=== PATIENT | male | born 1935 | race Caucasian/White ===

== ENCOUNTER 2017-03-05 12:39 | Inpatient (IN) | payer SELFPAY ==
[~2017-03-05] VITALS: Ht 170.2 cm; Wt 73.5 kg
[2017-03-05] MEDS ORDERED: SODIUM CHLORIDE 0.9% 1000ML BAG (SEPSIS BOLUS) IV ONE (14:30)
[2017-03-05 15:07] LABS: CHLORIDE 105 mEq/L (98-107)
[2017-03-05 15:11] LABS: INR 1.2; PROTHROMBIN TIME 12.8 sec (9.4-11.6)
[2017-03-05 15:15] LABS: CARBON DIOXIDE 22 mEq/L (21-32); ETHANOL BLOOD < 10 mg/dL
[2017-03-05 15:16] LABS: TROPONIN I 0.05 ng/mL (0.00-0.04)
[2017-03-05 16:10] LABS: CLARITY URINE CLOUDY (CLEAR); COLOR URINE YELLOW (YELLOW); GLUCOSE URINE NEGATIVE (NEGATIVE); KETONES URINE NEGATIVE (NEGATIVE); LEUKOCYTE ESTERASE URINE 1+ (NEGATIVE); NITRITE URINE NEGATIVE (NEGATIVE); OCCULT BLOOD URINE 2+ (NEGATIVE); PROTEIN URINE 2+ (NEGATIVE); SPECIFIC GRAVITY URINE 1.018 (1.005-1.030)
[2017-03-05 16:25] LABS: *AMPHETAMINES SCREEN URINE NEGATIVE (NEGATIVE); *BARBITURATES SCREEN URINE NEGATIVE (NEGATIVE); *BENZODIAZEPINES SCREEN URINE NEGATIVE (NEGATIVE); *COCAINE SCREEN URINE NEGATIVE (NEGATIVE); CANNABINOID URINE SCREEN NEGATIVE (NEGATIVE); METHADONE URINE SCREEN NEGATIVE (NEGATIVE); OPIATES URINE SCREEN NEGATIVE (NEGATIVE); PHENCYCLIDINE URINE SCREEN NEGATIVE (NEGATIVE)
[2017-03-05 16:51] LABS: HEMATOCRIT. 23.8 % (42.0-52.0); HEMOGLOBIN. 8.3 g/dL (14.0-18.0); MEAN CORPUSCULAR HEMOGLOBIN 32.2 pg (28.0-32.0); MEAN CORPUSCULAR VOLUME 92.8 fL (80.0-94.0); MEAN PLATELET VOLUME 9.1 fl (7.4-10.4); RED BLOOD CELL COUNT 2.57 mill/uL (4.7-6.1); RED CELL DISTRIBUTION WIDTH 12.5 % (11.6-14.6)
[2017-03-05 16:57] LABS: PLATELET 31 x1000/uL (130-400)
[2017-03-05] MEDS ORDERED: PIPERACILLIN/TAZ 3.375G PREMIX 50 ML IV NR (17:06)
[2017-03-05] MEDS ORDERED: PIPERACILLIN/TAZOBACTAM 3.375GM/50ML PREMIX IV ONE (17:15)
[2017-03-05 20:00] VITALS: BP 99/56
[2017-03-05 22:00] VITALS: BP 123/72
[2017-03-05] MEDS ORDERED: ACETAMINOPHEN 325MG TABLET PO PRN (22:45)
[2017-03-05] MEDS ORDERED: ONDANSETRON HCL 4MG/2ML VIAL IV PRN (22:45)
[2017-03-06] VITALS (12 sets, daily range): BP systolic 112–142; BP diastolic 59–70
[2017-03-06] MEDS ORDERED: NAPROXEN PO (00:04)
[2017-03-06] MEDS ORDERED: INSU3INS6 SUBCUT (00:04)
[2017-03-06] MEDS ORDERED: [UNRECOGNIZED DRUG - OTHER] PO (00:04)
[2017-03-06] MEDS ORDERED: ENAL10TA PO (00:04)
[2017-03-06] MEDS: PIPERACILLIN/TAZ 2.25G PREMIX 50 ML IV SCH ×3 (02:18→13:01)
[2017-03-06] MEDS ORDERED: VANCOMYCIN 1500MG in DEXTROSE 5% WATER 250ML IV NR (02:30)
[2017-03-06 07:24] LABS: HEMATOCRIT. 25.3 % (42.0-52.0); HEMOGLOBIN. 8.8 g/dL (14.0-18.0); MEAN CORPUSCULAR HEMOGLOBIN 32.1 pg (28.0-32.0); MEAN CORPUSCULAR VOLUME 92.8 fL (80.0-94.0); MEAN PLATELET VOLUME 9.9 fl (7.4-10.4); RED BLOOD CELL COUNT 2.73 mill/uL (4.7-6.1); RED CELL DISTRIBUTION WIDTH 12.5 % (11.6-14.6)
[2017-03-06 07:37] LABS: PLATELET 30 x1000/uL (130-400)
[2017-03-06] MEDS: INSULIN LISPRO 100 UNITS/ML SUBCUT SCH ×5 (08:00→22:00)
[2017-03-06 09:10] LABS: PLATELET ESTIMATE MARKEDLY DECREASED
[2017-03-06] MEDS ORDERED: FILGRASTIM 300 MCG/ML VIAL SUBCUT ONE (12:15)
[2017-03-06] MEDS: BLOOD SUGAR DIAGNOSTIC STRIP TEST SCH ×3 (13:04→21:00)
[2017-03-06] MEDS: CEFTRIAXONE 1 G PREMIX 50 ML IV SCH (15:18)
[2017-03-06] MEDS: SODIUM CHLORIDE 0.9% 1,000 ML IV SCH (20:14)
[2017-03-06] MEDS: INSULIN DETEMIR UD 100 UNITS/ML SYR SUBCUT SCH (22:01)
[2017-03-07] VITALS (22 sets, daily range): BP systolic 104–157; BP diastolic 57–75
[2017-03-07] MEDS ORDERED: VANCOMYCIN 1 G PREMIX 200 ML IV SCH (03:00)
[2017-03-07] MEDS: SODIUM CHLORIDE 0.9% 1,000 ML IV SCH ×2 (05:30→16:26)
[2017-03-07 05:45] LABS: INR 1.2; PARTIAL THROMBOPLASTIN TIME 43.4 sec (23.4-31.0); PROTHROMBIN TIME 12.2 sec (9.4-11.6)
[2017-03-07 05:46] LABS: HEMATOCRIT. 23.2 % (42.0-52.0); MEAN CORPUSCULAR HEMOGLOBIN 31.7 pg (28.0-32.0); MEAN CORPUSCULAR VOLUME 92.5 fL (80.0-94.0); MEAN PLATELET VOLUME 9.8 fl (7.4-10.4); RED BLOOD CELL COUNT 2.51 mill/uL (4.7-6.1); RED CELL DISTRIBUTION WIDTH 12.5 % (11.6-14.6)
[2017-03-07 06:39] LABS: PLATELET 39 x1000/uL (130-400)
[2017-03-07] MEDS: BLOOD SUGAR DIAGNOSTIC STRIP TEST SCH ×4 (07:30→20:45)
[2017-03-07 07:48] LABS: PLATELET ESTIMATE MARKEDLY DECREASED
[2017-03-07] MEDS: INSULIN LISPRO 100 UNITS/ML SUBCUT SCH ×4 (08:00→20:47)
[2017-03-07] MEDS: DEXTROSE 50% WATER 50ML SYRINGE IV PRN (08:53)
[2017-03-07] MEDS ORDERED: ENALAPRIL 10MG TABLET PO SCH (09:00)
[2017-03-07] MEDS ORDERED: IOHEXOL-300 100 ML BOTTLE ONE (12:42)
[2017-03-07] MEDS ORDERED: SODIUM BICARBONATE 4% (2.4MEQ) 5ML VIAL IV ONE (12:42)
[2017-03-07] MEDS ORDERED: LIDOCAINE HCL 1% 20ML VIAL (Pyxis) INJ ONE (12:42)
[2017-03-07] MEDS: CEFTRIAXONE 1 G PREMIX 50 ML IV SCH (15:05)
[2017-03-07 15:16] LABS: PHOSPHORUS 2.4 mg/dL (2.5-4.9)
[2017-03-07 17:54] LABS: COLOR URINE YELLOW (YELLOW); GLUCOSE URINE NEGATIVE (NEGATIVE); KETONES URINE NEGATIVE (NEGATIVE); LEUKOCYTE ESTERASE URINE NEGATIVE (NEGATIVE); NITRITE URINE NEGATIVE (NEGATIVE); OCCULT BLOOD URINE 1+ (NEGATIVE); PROTEIN URINE 2+ (NEGATIVE); SPECIFIC GRAVITY URINE 1.022 (1.005-1.030)
[2017-03-07] MEDS ORDERED: POTASSIUM PHOS,M-BASIC-D-BASIC 20 MMOL in DEXT 5% WATER 243.3333 ML IV NR (18:00)
[2017-03-07 18:03] LABS: CLARITY URINE SLIGHTLY HAZY (CLEAR)
[2017-03-07] MEDS: FILGRASTIM-TBO 480 MCG/0.8 ML SYRINGE SQ SCH (20:45)
[2017-03-07] MEDS: VANCOMYCIN 1 G PREMIX 200 ML IV SCH (20:45)
[2017-03-07] MEDS: INSULIN DETEMIR UD 100 UNITS/ML SYR SUBCUT SCH (20:48)
[2017-03-08] VITALS (12 sets, daily range): BP systolic 128–158; BP diastolic 63–75
[2017-03-08] MEDS: SODIUM CHLORIDE 0.9% 1,000 ML IV SCH ×4 (02:15→22:43)
[2017-03-08 06:24] LABS: HEMATOCRIT. 21.2 % (42.0-52.0); HEMOGLOBIN. 7.4 g/dL (14.0-18.0); MEAN CORPUSCULAR VOLUME 91.7 fL (80.0-94.0); PLATELET 71 x1000/uL (130-400); RED BLOOD CELL COUNT 2.31 mill/uL (4.7-6.1); RED CELL DISTRIBUTION WIDTH 12.1 % (11.6-14.6)
[2017-03-08 06:53] LABS: CARBON DIOXIDE 23 mEq/L (21-32); CHLORIDE 107 mEq/L (98-107); PHOSPHORUS 3.1 mg/dL (2.5-4.9)
[2017-03-08] MEDS: BLOOD SUGAR DIAGNOSTIC STRIP TEST SCH ×4 (07:51→20:11)
[2017-03-08] MEDS: INSULIN LISPRO 100 UNITS/ML SUBCUT SCH ×4 (07:51→21:24)
[2017-03-08 07:59] LABS: PLATELET ESTIMATE DECREASED
[2017-03-08] MEDS: CEFTRIAXONE 1 G PREMIX 50 ML IV SCH (14:22)
[2017-03-08] MEDS: VANCOMYCIN 1 G PREMIX 200 ML IV SCH (15:14)
[2017-03-08] MEDS ORDERED: LEVOFLOXACIN 500MG TABLET PO SCH (18:00)
[2017-03-08] MEDS: FILGRASTIM-TBO 480 MCG/0.8 ML SYRINGE SQ SCH (20:11)
[2017-03-08] MEDS ORDERED: INSULIN DETEMIR UD 100 UNITS/ML SYR SUBCUT SCH (22:00)
[2017-03-09] VITALS (16 sets, daily range): BP systolic 113–154; BP diastolic 64–77
[2017-03-09 06:47] LABS: MEAN CORPUSCULAR HEMOGLOBIN 31.8 pg (28.0-32.0); MEAN CORPUSCULAR VOLUME 91.5 fL (80.0-94.0); MEAN PLATELET VOLUME 8.9 fl (7.4-10.4); PLATELET 91 x1000/uL (130-400); RED BLOOD CELL COUNT 2.14 mill/uL (4.7-6.1); RED CELL DISTRIBUTION WIDTH 12.2 % (11.6-14.6)
[2017-03-09 07:24] LABS: HEMATOCRIT. 19.6 % (42.0-52.0); HEMOGLOBIN. 6.8 g/dL (14.0-18.0)
[2017-03-09] MEDS: BLOOD SUGAR DIAGNOSTIC STRIP TEST SCH ×3 (07:30→17:30)
[2017-03-09 07:38] LABS: CARBON DIOXIDE 23 mEq/L (21-32); CHLORIDE 108 mEq/L (98-107); PHOSPHORUS 2.2 mg/dL (2.5-4.9)
[2017-03-09 07:43] LABS: HDL CHOLESTEROL 12 mg/dL (40-59); LDL CHOLESTEROL 50 mg/dL (5-100); PREALBUMIN 6.1 mg/dL (20.0-40.0)
[2017-03-09] MEDS: INSULIN LISPRO 100 UNITS/ML SUBCUT SCH ×3 (08:00→17:31)
[2017-03-09] MEDS: DEXTROSE 50% WATER 50ML SYRINGE IV PRN (08:39)
[2017-03-09 09:04] LABS: PLATELET ESTIMATE DECREASED
[2017-03-09] MEDS: SODIUM CHLORIDE 0.9% 1,000 ML IV SCH (09:04)
[2017-03-09] MEDS: VANCOMYCIN 1 G PREMIX 200 ML IV SCH (09:04)
[2017-03-09] MEDS ORDERED: POTASSIUM-SODIUM PHOSPHATE POWDER PACKET PO NR (09:30)
[2017-03-09] MEDS ORDERED: MAGNESIUM 2 G PREMIX 50 ML IV NR (10:00)
[2017-03-09] MEDS ORDERED: DIPHENHYDRAMINE 25MG CAPSULE PO SCH (11:35)
[2017-03-09] MEDS ORDERED: ACETAMINOPHEN 650MG/20.3ML UDC PO SCH (11:35)
[2017-03-09] MEDS ORDERED: FUROSEMIDE 20MG/2ML VIAL IVP SCH (11:35)
[2017-03-09] MEDS ORDERED: LEVOFLOXACIN 250MG TABLET PO SCH (12:00)
[2017-03-09] MEDS: CEFTRIAXONE 1 G PREMIX 50 ML IV SCH (14:54)
== END 2017-03-09 17:46 | disposition home or self-care (01) | DRG 720 ==
LOC: ER 14:00 → ENRESERV 15:25 → 5EST 17:13 → EDBEDREQSVC 17:20 → EDBEDREQ 17:20
PROVIDERS: ADMIT Family Medicine; ATTEND Family Medicine
PROC: 30233R1 Transfusion of Nonautologous Platelets into Peripheral Vein, Percutaneous Approach (ICD-10-PCS; 2017-03-07)
PROC: 30233N1 Transfusion of Nonautologous Red Blood Cells into Peripheral Vein, Percutaneous Approach (ICD-10-PCS; principal; 2017-03-09)
DX: A41.9 Sepsis, unspecified organism (principal); E43 Unspecified severe protein-calorie malnutrition; N17.9 Acute kidney failure, unspecified; D61.818 Other pancytopenia; C85.10 Unspecified B-cell lymphoma, unspecified site; E11.9 Type 2 diabetes mellitus without complications; I82.412 Acute embolism and thrombosis of left femoral vein; E83.39 Other disorders of phosphorus metabolism; I10 Essential (primary) hypertension; R65.20 Severe sepsis without septic shock; I82.432 Acute embolism and thrombosis of left popliteal vein; Z83.3 Family history of diabetes mellitus; Z85.46 Personal history of malignant neoplasm of prostate; Z87.440 Personal history of urinary (tract) infections; Z92.21 Personal history of antineoplastic chemotherapy; Z68.25 Body mass index [BMI] 25.0-25.9, adult
CPT/HCPCS: 36415; 37191; 71010; 74176; 76770; 80048; 80053; 80061; 80202; 80305; 81001; 82570; 82962; 83605; 83615; 83735; 83880; 84100; 84134; 84156; 84300; 84484; 84550; 85025; 85049; 85610; 85730; 86850; 86900; 86920; 87040; 87077; 87086; 87186; 93005; 93970; 96361; 96365; 99291; A6261; C1725; C1769; C1880; G0482; J0696; J1442; J1644; J1815; J1940; J2543; J3370; J3475; J3490; J7030; J7040; J7050; J7060; P9016; P9034; Q0163; Q9967; A4315